=== PATIENT | female | born 1995 | race Two or more races ===

== ENCOUNTER → 2018-12-30 | Outpatient (CLI) | payer OTHER ==
--- NOTE | 2018-12-30 16:05 | RADIOLOGY REPORT (SQ) ---
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 TECHNIQUE: Dynamic and static grayscale images acquired of the pelvis via transabdominal approach an d recorded on PACS. Additional selected color Doppler and spectral images recorded. LIMITATIONS: None. FINDINGS: UTERUS: There is a 2.5 cm hypoechoic area in the posterior myometrium, possible fibroid. ENDOMETRIAL STRIPE: No focal or generalized thickening. No masses. CERVIX: 4.7 cm. No nabothian cysts. RIGHT OVARY AND DOPPLER: Normal size. No worrisome masses. Normal arterial vascular flow without evid ence for torsion. LEFT OVARY AND DOPPLER: Normal size. No worrisome masses. Normal arterial vascular flow without evide nce for torsion. FREE FLUID: None noted. OTHER: No other significant finding. MEASUREMENTS: UTERUS: 11.2 x 7.5 x 4.7 cm. ENDOMETRIAL STRIPE: 3 mm. RIGHT OVARY: 3.4 x 3.7 x 3.6 cm. LEFT OVARY: 3 x 2.6 x 1.7 cm. IMPRESSION: There is a 2.5 cm fibroid in the subserosal posterior myometrium. TECHNICAL DOCUMENTATION: JOB ID: [id number]- All Rights Reserved Rev-12/11 Reading location - IP/workstation name: [email or web address]
== END ==
LOC: RAD 14:45
PROVIDERS: ATTEND Family Medicine
DX: D25.9 Leiomyoma of uterus, unspecified (principal)
CPT/HCPCS: 76856